=== PATIENT | female | born 1990 | race Caucasian/White ===

== ENCOUNTER 2017-08-13 15:19 | Inpatient (IN) | payer BC ==
[2017-08-13 16:04] VITALS: BMI 34.6
[2017-08-13] MEDS: Lactated Ringer's 1,000 ML IV SCH (17:25)
[2017-08-13] MEDS ORDERED: Lidocaine 1% (PF) 30 ML VIAL SC PRN (17:54)
[2017-08-13] MEDS ORDERED: HYDROcodone/Acetaminophen 5/325 mg Tablet PO PRN ×2 (17:54)
[2017-08-13] MEDS ORDERED: Ibuprofen 800 MG TAB PO PRN (17:54)
[2017-08-13] MEDS ORDERED: Ondansetron HCl/PF 4 MG/2 ML Vial IVP PRN (17:54)
[2017-08-13] MEDS ORDERED: LR 500 ML/Oxytocin 10 units 500 ML IV SCH (18:00)
[2017-08-13] MEDS ORDERED: Lactated Ringer's 1,000 ML IV SCH (18:00)
[2017-08-13] MEDS ORDERED: Penicillin G Potassium 5 MILL.UNITS in Sodium Chloride 0.9% 100 ML IVPB SCH (18:00)
[2017-08-13 18:06] LABS: Hematocrit 37.8 % (36.0-47.0); Mean Platelet Volume 9.4 fL (7.4-10.4); Red Blood Cell (RBC) Count 4.32 mill/uL (4.20-5.40); White Blood Cell (WBC) Count 13.9 thou/uL (4.8-10.8)
[2017-08-13] MEDS ORDERED: Penicillin G Potassium 5 MILL.UNITS VIAL ONE (18:08)
[2017-08-13] MEDS: Penicillin G 2.5 MILL.units 2.5 MILL.UNITS in Premix Bag 1 BAG IVPB SCH (22:36)
[2017-08-14] MEDS: Lactated Ringer's 1,000 ML IV SCH ×2 (02:02→09:16)
[2017-08-14] MEDS: Penicillin G 2.5 MILL.units 2.5 MILL.UNITS in Premix Bag 1 BAG IVPB SCH ×4 (02:27→17:47)
[2017-08-14] MEDS ORDERED: Fentanyl 4 mcg/Marc 0.1% Cadd 100 ML ONE (08:17)
--- NOTE | 2017-08-14 09:09 | PDOC.LDHP ---
Labor and Delivery H&P Chief complaint: contractions HPI: 27yo at 39w3d by LMP here with painful contractions since yesterday afternoon. good FM. no LOF. Current gestational age (weeks): 39 Due date: 08/18/17 Dating criteria: last menstrual period Grav: 2 Para: 1 OB History Details: PROM, Meconium, chorioamnionitis last delivery. Current complications: none Abnormal US findings: No Past Medical History: h/o anxiety, never been on meds Current medications: pre-guero vitamins Previous surgical history: none Allergies/Adverse Reactions: Allergies Allergy/AdvReac Type Severity Reaction Status Date / Time No Known Allergies Allergy Unverified 09/22/15 16:43 Social history: none - Physical Exam Vital signs reviewed and normal: yes General: NAD Heart: RRR Lungs: CTAB Abdomen: gravid Extremeties: no edema FHT: category 1 Dunbar contractions every: q3-4min - Vaginal Exam cm dilated: 4 Effacement: 50% Station: -2 (arom clear) - OB Labs Blood type: A RH: positive Antibody Screen: negative HIV: negative RPR: negative HEPSAg: negative 1 hour GCT: negative GBS: positive Rubella: immune - Assessment L&D Assessment: term patient in labor - Plan Plan: admit to L&D, labor augmentation if indicated, GBS antibiotic prophylaxis , informed consent obtained, anesthesia consult for pain management
[2017-08-14] MEDS ORDERED: Naloxone HCl 0.4 mg/ml Vial IVP PRN ×2 (11:35)
[2017-08-14] MEDS ORDERED: Acetaminophen 325 MG TAB PO PRN (11:35)
[2017-08-14] MEDS ORDERED: Eucerin (Mineral Oil/Petrolatum,White) 30 gm Jar TOP PRN (11:35)
[2017-08-14] MEDS ORDERED: Lactated Ringer's 500 ML IV PRN (11:35)
[2017-08-14] MEDS ORDERED: ePHEDrine/0.9% NaCl/PF SYRINGE 50 mg/10 ml SLOW IVP PRN (11:35)
[2017-08-14] MEDS ORDERED: Ondansetron HCl/PF 4 MG/2 ML Vial IVP PRN ×2 (11:35→15:55)
[2017-08-14] MEDS ORDERED: Promethazine HCl 25 MG/ML VIAL IM PRN (11:35)
[2017-08-14] MEDS ORDERED: diphenhydrAMINE 50 MG/ML VIAL IVP PRN (11:35)
[2017-08-14] MEDS ORDERED: Fentanyl 4mcg/Marcaine 0.1% Cassette 100 ML EPIDURAL SCH (11:45)
[2017-08-14] MEDS ORDERED: Communication Order-Pharmacy FS SCH (11:45)
[2017-08-14] MEDS: LR / Pitocin 40 units/1000 ml 1,000 ML IV PRN ×2 (13:24→14:50)
--- NOTE | 2017-08-14 15:01 | PDOC.OPDEL ---
OB Operative/Delivery Note Delivery Dr/Surgeon: Brittany Assist: n/a Pre-Delivery Diagnosis: active labor Procedure/Post Delivery Dx: spontaneous vaginal delivery Weeks gestation: 39 Anesthesia: epidural - Findings A Sex: male Weight: 9 lb - 1 min: 8 - 5 min: 9 - Additional Findings/Plan Placenta delivered: spontaneous Repaired Obstetrical Laceration: 1st degree (vaginal, repaired with 2-0 vicryl for hemostasis) Estimated blood loss: 300 Post delivery plan: routine recovery
[2017-08-14] MEDS ORDERED: diphenhydrAMINE 25 MG CAP PO PRN (15:55)
[2017-08-14] MEDS ORDERED: Milk Of Magnesia 30 ML UDCUP PO PRN (15:55)
[2017-08-14] MEDS ORDERED: Lanolin Ointment 7 GM TUBE TOP PRN (15:55)
[2017-08-14] MEDS ORDERED: Benzocaine/Menthol 20-0.5% 60 ML CAN TOP PRN (15:55)
[2017-08-14] MEDS ORDERED: LR / Pitocin 40 units/1000 ml 1,000 ML IV SCH (15:55)
[2017-08-14] MEDS ORDERED: Bisacodyl 10 MG SUPP PR PRN (15:55)
[2017-08-14] MEDS ORDERED: Preparation H Ointment 28 GM TUBE PR PRN (15:55)
[2017-08-14] MEDS ORDERED: Adacel (T-DAP) 0.5 ML VIAL IM ONE (15:55)
[2017-08-14] MEDS ORDERED: HYDROcodone/Acetaminophen 5/325 mg Tablet PO PRN ×2 (15:55)
[2017-08-14] MEDS: Ferrous Sulfate 325 MG TAB PO SCH (16:34)
[2017-08-14] MEDS: Ibuprofen 800 MG TAB PO SCH (18:39)
[2017-08-14] MEDS ORDERED: Lidocaine 2% MPF 10 ML AMP (For Epidural Use) ONE (20:31)
[2017-08-14] MEDS: Docusate Calcium (SURFAK) 240 MG CAP PO SCH (21:39)
[2017-08-15] MEDS: Ibuprofen 800 MG TAB PO SCH ×2 (04:03→14:28)
[2017-08-15] MEDS: Ferrous Sulfate 325 MG TAB PO SCH (08:45)
[2017-08-15] MEDS: Docusate Calcium (SURFAK) 240 MG CAP PO SCH (08:45)
[2017-08-15] MEDS ORDERED: Prenatal Vitamin 1 TAB PO SCH (09:00)
[2017-08-15 12:44] VITALS: BP 114/71; TEMP 97.9
--- NOTE | 2017-08-15 14:13 | PDOC.PP ---
Post Progress Note Post Day #: 1 PO intake tolerated: yes Flatus: yes Ambulation: yes Vital Signs (12 hours) Temp Pulse Resp BP 08/15/17 12:42 97.9 F 79 20 114/71 08/15/17 12:00 97.9 F 79 20 08/15/17 08:47 98.0 F 92 20 100/64 08/15/17 07:50 98.0 F 92 20 08/15/17 04:00 98.9 F 78 16 111/63 Weight Weight 208 lb - Physical Examination General: NAD Cardiovascular: RRR Respiratory: non-labored breathing Abdominal: appropriately TTP Fundus firm & at: umb-2 Skin: no rash Psychiatric: normal affect Result Diagrams: 08/13/17 17:25 Additional Labs: Post Labs Hep Bs Antigen Non-Reactive S/CO (NonReactive) 08/14/17 14:25 (1) Vaginal delivery Code(s): O80 - ENCOUNTER FOR FULL-TERM UNCOMPLICATED DELIVERY Status: Acute - Assessment/Plan VSSAF Doing well lochia appropriate Rh pos RImm , LC pending DC home FU 6w
== END 2017-08-15 16:15 | disposition home or self-care (01) | DRG 775 ==
LOC: L&D/OP 15:19 → L&D 17:09 → 3SW 08-14 15:55
PROVIDERS: ADMIT Student in an Organized Health Care Education/Training Program; ATTEND Student in an Organized Health Care Education/Training Program
PROC: 10E0XZZ Delivery of Products of Conception, External Approach (ICD-10-PCS; principal; 2017-08-14)
PROC: 10907ZC Drainage of Amniotic Fluid, Therapeutic from Products of Conception, Via Natural or Artificial Opening (ICD-10-PCS; 2017-08-14)
PROC: 0HQ9XZZ Repair Perineum Skin, External Approach (ICD-10-PCS; 2017-08-14)
DX: O70.0 First degree perineal laceration during delivery (principal); O99.824 Streptococcus B carrier state complicating childbirth; Z3A.39 39 weeks gestation of pregnancy; Z37.0 Single live birth
CPT/HCPCS: 36415; 85027; 86780; 86803; 87340; 87389; J2001; J2540; J7050; J7120

== ENCOUNTER 2017-09-10 03:07 | Emergency (ER) | payer BC ==
[2017-09-10] MEDS ORDERED: Ondansetron HCl/PF 4 MG/2 ML Vial ONE (03:20)
== END 2017-09-10 06:11 | disposition home or self-care (01) ==
LOC: ERS 03:07
DX: F10.129 Alcohol abuse with intoxication, unspecified (principal)
CPT/HCPCS: 96361; 96374; J2405